=== PATIENT | female | born 1995 | race Hispanic/Latino ===

== ENCOUNTER 2023-09-15 19:00 | Inpatient (IN) | payer MEDICAID, SELFPAY ==
[2023-09-16 03:02] VITALS: BMI 30.2
[2023-09-16] MEDS ORDERED: Lidocaine 1% (PF) 30 ML VIAL SC PRN (04:15)
[2023-09-16] MEDS ORDERED: Carboprost 250 MCG/ML AMP IM PRN (04:15)
[2023-09-16] MEDS ORDERED: Misoprostol 100 MCG TAB VAG SCH (04:15)
[2023-09-16] MEDS ORDERED: Ondansetron PF 4 MG/2 ML Vial IVP PRN (04:15)
[2023-09-16] MEDS ORDERED: Docusate 100 MG CAP PO PRN (04:15)
[2023-09-16] MEDS ORDERED: Tranexamic Acid 1,000 MG/10 ML VIAL IVP PRN (04:15)
[2023-09-16] MEDS ORDERED: Promethazine HCl 25 MG/ML VIAL IM PRN (04:15)
[2023-09-16] MEDS ORDERED: hydrALAZINE 20 MG/ML VIAL SLOW IVP PRN (04:15)
[2023-09-16] MEDS ORDERED: Methylergonovine 0.2 MG/ML VIAL IM PRN (04:15)
[2023-09-16] MEDS ORDERED: fentaNYL 50 mcg/mL 1 mL Vial SLOW IVP PRN (04:15)
[2023-09-16] MEDS ORDERED: Acetaminophen 500 MG TAB PO PRN (04:15)
[2023-09-16] MEDS ORDERED: Misoprostol 200 MCG TAB PR PRN (04:15)
[2023-09-16] MEDS ORDERED: Butorphanol Tartrate 1 MG/ML VIAL SLOW IVP PRN (04:15)
[2023-09-16] MEDS ORDERED: Ibuprofen 800 MG TAB PO PRN (04:15)
[2023-09-16] MEDS ORDERED: Oxytocin 30 units/NS 500 ML 500 ML IV SCH ×2 (04:30)
[2023-09-16 04:52] LABS: Hematocrit 36.2 % (34.9-44.5); Hemoglobin 12.2 g/dL (12.0-15.5); Mean Corpuscular HGB CONC 33.7 g/dL (32.0-36.0); Mean Corpuscular Hemoglobin 30.7 pg (27.0-33.0); Mean Platelet Volume 11.5 fl (7.4-10.4); Platelet Count 253 10x3/uL (150-450); RBC Distribution Width 13.7 % (11.5-14.5); Red Blood Cell (RBC) Count 3.98 10x6/uL (3.90-5.03); White Blood Cell (WBC) Count 6.6 10x3/uL (3.5-10.5)
[2023-09-16 05:17] LABS: Syphilis Antibody Nonreactive (Nonreactive); Syphilis Antibody Index 0.07 S/CO (<1.00 Non-Reactive)
[2023-09-16 05:18] LABS: HBSAg Index 0.19 S/CO (0-0.99); Hep B Surf Ag - L&D Non-Reactive S/CO (NonReactive)
[2023-09-16] MEDS: Lactated Ringer's 1,000 ML IV SCH ×2 (08:00→12:20)
[2023-09-16] MEDS ORDERED: Bisacodyl 10 MG SUPP PR PRN (16:09)
[2023-09-16] MEDS ORDERED: Boostrix 0.5 ML (Tdap) VIAL (>/=7 yrs of age) IM ONE (16:09)
[2023-09-16] MEDS ORDERED: Milk Of Magnesia 30 ML UDCUP PO PRN (16:09)
[2023-09-16] MEDS: Ferrous Sulfate 325 MG TAB PO SCH (17:11)
[2023-09-16] MEDS: Ibuprofen 800 MG TAB PO PRN (18:39)
[2023-09-17] MEDS: Ibuprofen 800 MG TAB PO PRN ×3 (03:12→18:23)
[2023-09-17] MEDS: Ferrous Sulfate 325 MG TAB PO SCH (07:23)
[2023-09-17] MEDS ORDERED: Preparation H Ointment 28 GM TUBE PR PRN (07:27)
[2023-09-17] MEDS ORDERED: Benzocaine-Menthol 82.5 ML CAN TOP PRN (07:27)
[2023-09-17] MEDS ORDERED: Lanolin Ointment 7 GM TUBE TOP PRN (07:27)
[2023-09-17] MEDS ORDERED: Boostrix 0.5 ML (Tdap) VIAL (>/=7 yrs of age) IM ONE (07:27)
[2023-09-17] MEDS ORDERED: diphenhydrAMINE 25 MG CAP PO PRN (07:27)
[2023-09-17] MEDS ORDERED: hydrALAZINE 20 MG/ML VIAL SLOW IVP PRN (07:27)
[2023-09-17] MEDS ORDERED: Docusate 100 MG CAP PO SCH (09:00)
[2023-09-17] MEDS ORDERED: Prenatal Vitamin 1 TAB PO SCH (09:00)
[2023-09-17 20:23] VITALS: BP 116/73; TEMP 98.1
== END 2023-09-17 20:15 | disposition home or self-care (01) | DRG 807 ==
LOC: CSHLD 09-16 02:05 → CSHPED 09-16 17:35
PROVIDERS: ADMIT Family Medicine; ATTEND Family Medicine
PROC: 10E0XZZ Delivery of Products of Conception, External Approach (ICD-10-PCS; principal; 2023-09-16)
PROC: 10907ZC Drainage of Amniotic Fluid, Therapeutic from Products of Conception, Via Natural or Artificial Opening (ICD-10-PCS; 2023-09-16)
PROC: 10H07YZ Insertion of Other Device into Products of Conception, Via Natural or Artificial Opening (ICD-10-PCS; 2023-09-16)
DX: O48.0 Post-term pregnancy (principal); Z37.0 Single live birth; Z3A.40 40 weeks gestation of pregnancy; O36.5930 Maternal care for other known or suspected poor fetal growth, third trimester, not applicable or unspecified; Z79.899 Other long term (current) drug therapy; O76 Abnormality in fetal heart rate and rhythm complicating labor and delivery; O70.0 First degree perineal laceration during delivery
CPT/HCPCS: 85027; 86780; 86850; 86900; 86901; 87340; J2590; J3010; J7120